=== PATIENT | male | born 2000 | race Hispanic/Latino ===

== ENCOUNTER 2023-12-14 08:49 | Inpatient (IN) | payer SELFPAY ==
[~2023-12-14] VITALS: Ht 167.6 cm; Wt 72.6 kg
[2023-12-14] VITALS (17 sets, daily range): BP systolic 116–134; BP diastolic 70–89; PULSE 52–82; RESP 10–16; O2SAT 97
[2023-12-14] MEDS ORDERED: SUCCINYLCHOLINE CHLORIDE 20 MG/ML 10 ML VIAL ONE (09:09)
[2023-12-14] MEDS ORDERED: MIDAZOLAM HCL 1 MG/ML 2ML VIAL ONE ×2 (09:09→10:26)
[2023-12-14] MEDS ORDERED: PROPOFOL 10 MG/ML 20ML VIAL IV ONE (09:09)
[2023-12-14 09:10] LABS: HEMATOCRIT 45.2 % (42-54); MEAN CORPUSCULAR VOLUME 85.9 fL (79-99); PLATELET COUNT (AUTO) 310 K/uL (130-400); RED BLOOD CELL COUNT(AUTO) 5.26 MIL/uL (4.50-6.20); RED CELL DISTRIBUTION WIDTH 12.2 % (11.0-15.5); WHITE BLOOD COUNT (AUTO) 10.5 K/uL (4.8-10.8)
[2023-12-14] MEDS ORDERED: ROCURONIUM BROMIDE 10MG/1ML 5ML VL ONE (09:10)
[2023-12-14] MEDS ORDERED: FENTANYL CITRATE PF 50 MCG/1 ML 2ML VIAL ONE (09:10)
[2023-12-14] MEDS: MORPHINE 4 MG SYG IVP ONE (09:13)
[2023-12-14] MEDS: LACTATED RINGERS 1000ML IV ONE (09:13)
[2023-12-14] MEDS: TETANUS/DIPHTHERIA TOXOID [ADULT] 0.5 ML VIAL IM ONE (09:15)
[2023-12-14] MEDS: CEFAZOLIN SODIUM 2 GM VIAL IVPB STA (09:15)
[2023-12-14] MEDS: CEFAZOLIN SODIUM 1 GM VIAL ONE (09:21)
[2023-12-14 09:24] LABS: CREATININE 1.1 mg/dL (0.5-1.3); POTASSIUM 3.3 mmol/L (3.5-5.1)
[2023-12-14 09:29] LABS: ALBUMIN 4.7 g/dL (3.5-5.0); TOTAL PROTEIN, SERUM 8.7 g/dL (6.0-8.3)
[2023-12-14] MEDS ORDERED: BUPIVACAINE/PF 0.25% 30ML VIAL IJ ONE (09:44)
[2023-12-14] MEDS ORDERED: MEPERIDINE-PF 25 MG/ML SYG ONE (10:25)
[2023-12-14 10:35] LABS: EOSINOPHILS % (MANUAL) 2 % (1-6); LYMPHOCYTES % (MANUAL) 38 % (22-44); MAN.DIFF COMMENT-IMPRESSION MANUAL DIFFERENTIAL; MONOCYTES % (MANUAL) 7 % (2-9); PLATELET MORPHOLOGY COMMENT ADEQUATE; REACTIVE LYMPHOCYTES 17 % (0-0); SEGMENTED NEUTROPHILS % 36 % (40-70); TOTAL CELLS COUNTED 100
[2023-12-14] MEDS: MEPERIDINE-PF 25 MG/ML SYG ONE (11:13)
[2023-12-14] MEDS: ONDANSETRON 4MG INJ ONE (11:13)
[2023-12-14] MEDS: ACETAMINOPHEN 1,000 MG/100 ML VIAL IV ONE (11:14)
== END 2023-12-14 12:50 | disposition home or self-care (01) | DRG 909 ==
LOC: EDH 08:49 → DAH 08:50 → DAHIP 08:50 → DAH 12:50
PROVIDERS: ADMIT Surgery; ATTEND Surgery
PROC: 3E0234Z Introduction of Serum, Toxoid and Vaccine into Muscle, Percutaneous Approach (ICD-10-PCS; 2023-12-14)
PROC: 03LC0ZZ Occlusion of Left Radial Artery, Open Approach (ICD-10-PCS; principal; 2023-12-14 09:00)
DX: S55.111A Laceration of radial artery at forearm level, right arm, initial encounter (principal); W31.89XA Contact with other specified machinery, initial encounter; Y93.89 Activity, other specified; Y92.89 Other specified places as the place of occurrence of the external cause; Y99.8 Other external cause status; Z23 Encounter for immunization
CPT/HCPCS: 36415; 73110; 80053; 85025; 86850; 86900; 86901; 90714; G0378; J0330; J0690; J2175; J2250; J2270; J2405; J2704; J3010; J3490; A6223; A6446; J0665